=== PATIENT | male | born 1950 | race Caucasian/White ===

== ENCOUNTER 2019-06-12 06:20 | Inpatient (IN) ==
[2019-06-12] MEDS ORDERED: CeFAZolin Syr 2,000MG/20 ML 2,000 MG/20 ML SYRINGE IVPB ONE (06:41)
[2019-06-12] MEDS ORDERED: Acetaminophen IV 1,000 MG/100 ML INFUS..BTL IVPB ONE (06:41)
[2019-06-12] MEDS ORDERED: Ringers Solution, Lactated 1,000 ML IVC SCH (06:45)
[2019-06-12] MEDS ORDERED: Lidocaine -MPF 4% 5 ML AMPUL ONE (06:54)
[2019-06-12] MEDS ORDERED: *HR* Succinylcholine 200 MG/10 ML VIAL IVP ONE (06:54)
[2019-06-12] MEDS ORDERED: Lidocaine -MPF 2% 2 ML VIAL ONE (06:54)
[2019-06-12] MEDS ORDERED: *HR* FentaNYL (PF) 100 MCG/2 ML VIAL ONE ×2 (06:54→09:44)
[2019-06-12] MEDS ORDERED: Dexamethasone 4 MG/ML VIAL ONE (06:54)
[2019-06-12] MEDS ORDERED: Ondansetron 4 MG/2 ML VIAL ONE (06:54)
[2019-06-12] MEDS ORDERED: *HR* Rocuronium Bromide 50 MG/5 ML VIAL ONE ×2 (06:54→09:18)
[2019-06-12] MEDS ORDERED: *HR* Propofol 200 MG/20 ML VIAL IVP ONE (06:55)
[2019-06-12] MEDS ORDERED: *HR* Midazolam HCl 2 MG/2 ML VIAL ONE (06:55)
[2019-06-12] MEDS ORDERED: *HR* Phenylephrine 10 MG/ML VIAL ONE (07:04)
[2019-06-12] MEDS ORDERED: Lacri-Lube 3.5 GM TUBE ONE (08:04)
[2019-06-12] MEDS ORDERED: EPHEDrine 50 MG/ML VIAL ONE (08:17)
[2019-06-12] MEDS ORDERED: *HR* HYDROMORPHONE 2 MG/ML VIAL ONE (10:04)
[2019-06-12] MEDS ORDERED: *HR* OxyCODONE Immed Rel 5 MG TABLET PO PRN (11:54)
[2019-06-12] MEDS ORDERED: *HR* HYDROmorphone (PF) 1 MG/ML SYRINGE IVP PRN (11:59)
[2019-06-12] MEDS ORDERED: Ondansetron 4 MG/2 ML VIAL IVP ONE (11:59)
[2019-06-12] MEDS ORDERED: *HR* Meperidine 25 MG/ML SYRINGE IVP PRN (11:59)
[2019-06-12] MEDS ORDERED: *HR* Promethazine 25 MG/ML VIAL IVP PRN (11:59)
[2019-06-12] MEDS ORDERED: Ondansetron 4 MG/2 ML VIAL IVP PRN (12:57)
[2019-06-12] MEDS ORDERED: Naloxone 0.4 MG/ML INJ IVP PRN (12:57)
[2019-06-12] MEDS: 0.9 % Sodium Chloride 1,000 ML IVC SCH (18:34)
[2019-06-12] MEDS: *HR* Heparin 5,000 UNIT/ML VIAL SQ SCH (18:36)
[2019-06-12] MEDS: Gabapentin 300 MG CAPSULE PO SCH (21:58)
[2019-06-13] MEDS: 0.9 % Sodium Chloride 1,000 ML IVC SCH ×3 (02:48→19:57)
[2019-06-13] MEDS: *HR* Heparin 5,000 UNIT/ML VIAL SQ SCH ×2 (05:13→18:12)
[2019-06-13] MEDS: *HR* HYDROcodone/Acet 5/325 mg TABLET PO PRN ×3 (05:34→20:52)
[2019-06-13 05:48] LABS: Hematocrit 41.5 % (37.5-50.1); Hemoglobin 14.1 g/dL (12.9-16.9); Mean Corpuscular Hemoglobin 30.3 pg (28.0-33.3); Mean Corpuscular Volume 89.2 fL (83.0-100.0); Platelet Count 194 K/mcL (140-400); Red Blood Count 4.65 M/mcL (4.19-5.50); Red Cell Distribution Width 12.8 % (11.5-14.5); White Blood Count 16.8 K/mcL (4.3-11.1)
[2019-06-13 06:09] LABS: BUN/Creatinine Ratio 22 (6-26); Blood Urea Nitrogen 19 mg/dL (8-23); Calcium 8.9 mg/dL (8.6-10.3); Carbon Dioxide 22 mEq/L (23-29); Chloride 105 mEq/L (98-107); Glucose 130 mg/dL (70-105); Osmolality,Calculated 290 (280-300); Potassium 4.9 mEq/L (3.5-5.1); Sodium 138 mEq/L (136-145); eGFR For African Americans > 60 (> 60); eGFR For Non-African Americans > 60 (> 60)
[2019-06-13] MEDS: Gabapentin 300 MG CAPSULE PO SCH ×2 (08:29→20:53)
[2019-06-13] MEDS: Lisinopril 20 MG TABLET PO SCH (08:29)
[2019-06-13] MEDS ORDERED: *HR* FentaNYL (PF) 100 MCG/2 ML VIAL IVP ONE ×2 (18:14→19:24)
[2019-06-13] MEDS: *HR* Belladonna Alkaloids/Opium 30 MG RECTAL SUPPOSITORY RC PRN (18:20)
[2019-06-13] MEDS: *HR* LORazepam 2 MG/ML VIAL IVP PRN (20:51)
[2019-06-13] MEDS: Hyoscyamine SL 0.125 MG TAB.SUBL SL PRN (20:53)
[2019-06-13 20:58] LABS: Hematocrit 38.3 % (37.5-50.1); Hemoglobin 13.4 g/dL (12.9-16.9)
[2019-06-14 02:03] LABS: Hematocrit 36.3 % (37.5-50.1); Hemoglobin 12.5 g/dL (12.9-16.9); Mean Corpuscular HGB Conc 34.4 g/dL (31.6-35.5); Mean Corpuscular Hemoglobin 30.6 pg (28.0-33.3); Mean Corpuscular Volume 88.8 fL (83.0-100.0); Mean Platelet Volume 9.6 fL (9.4-12.4); Platelet Count 171 K/mcL (140-400); Red Blood Count 4.09 M/mcL (4.19-5.50); Red Cell Distribution Width 13.1 % (11.5-14.5); White Blood Count 14.8 K/mcL (4.3-11.1)
[2019-06-14 02:23] LABS: BUN/Creatinine Ratio 20 (6-26); Blood Urea Nitrogen 21 mg/dL (8-23); Calcium 8.4 mg/dL (8.6-10.3); Carbon Dioxide 22 mEq/L (23-29); Chloride 109 mEq/L (98-107); Glucose 112 mg/dL (70-105); Osmolality,Calculated 290 (280-300); Sodium 138 mEq/L (136-145); eGFR For African Americans > 60 (> 60); eGFR For Non-African Americans > 60 (> 60)
[2019-06-14] MEDS: 0.9 % Sodium Chloride 1,000 ML IVC SCH ×3 (03:42→21:01)
[2019-06-14] MEDS: Hyoscyamine SL 0.125 MG TAB.SUBL SL PRN ×2 (03:42→17:55)
[2019-06-14] MEDS: *HR* LORazepam 2 MG/ML VIAL IVP PRN ×2 (04:26→21:04)
[2019-06-14] MEDS: Gabapentin 300 MG CAPSULE PO SCH ×2 (08:30→21:03)
[2019-06-14] MEDS: *HR* HYDROcodone/Acet 5/325 mg TABLET PO PRN ×2 (08:30→17:55)
[2019-06-14] MEDS: Lisinopril 20 MG TABLET PO SCH (08:31)
[2019-06-14 14:30] LABS: Hematocrit 33.4 % (37.5-50.1); Hemoglobin 11.3 g/dL (12.9-16.9)
[2019-06-14] MEDS: *HR* Belladonna Alkaloids/Opium 30 MG RECTAL SUPPOSITORY RC PRN (20:01)
[2019-06-15 04:52] LABS: Hematocrit 31.3 % (37.5-50.1); Hemoglobin 10.4 g/dL (12.9-16.9); Mean Corpuscular HGB Conc 33.2 g/dL (31.6-35.5); Mean Corpuscular Hemoglobin 30.3 pg (28.0-33.3); Mean Corpuscular Volume 91.3 fL (83.0-100.0); Mean Platelet Volume 9.8 fL (9.4-12.4); Platelet Count 121 K/mcL (140-400); Red Blood Count 3.43 M/mcL (4.19-5.50); White Blood Count 7.6 K/mcL (4.3-11.1)
[2019-06-15] MEDS: 0.9 % Sodium Chloride 1,000 ML IVC SCH ×3 (04:53→20:02)
[2019-06-15 04:56] LABS: BUN/Creatinine Ratio 14 (6-26); Blood Urea Nitrogen 12 mg/dL (8-23); Calcium 8.2 mg/dL (8.6-10.3); Carbon Dioxide 24 mEq/L (23-29); Chloride 114 mEq/L (98-107); Glucose 90 mg/dL (70-105); Osmolality,Calculated 293 (280-300); Potassium 4.3 mEq/L (3.5-5.1); Sodium 142 mEq/L (136-145); eGFR For African Americans > 60 (> 60); eGFR For Non-African Americans > 60 (> 60)
[2019-06-15] MEDS: *HR* Belladonna Alkaloids/Opium 30 MG RECTAL SUPPOSITORY RC PRN ×2 (05:30→22:52)
[2019-06-15] MEDS: Acetaminophen 325 MG TABLET PO PRN ×2 (08:46→14:58)
[2019-06-15] MEDS: Gabapentin 300 MG CAPSULE PO SCH ×2 (08:47→20:03)
[2019-06-15] MEDS: Hyoscyamine SL 0.125 MG TAB.SUBL SL PRN ×2 (08:47→14:58)
[2019-06-15] MEDS: Lisinopril 20 MG TABLET PO SCH (08:47)
[2019-06-15 11:18] LABS: Hemoglobin 11.6 g/dL (12.9-16.9)
[2019-06-16] MEDS: *HR* Belladonna Alkaloids/Opium 30 MG RECTAL SUPPOSITORY RC PRN (06:30)
[2019-06-16] MEDS: Gabapentin 300 MG CAPSULE PO SCH ×2 (07:51→20:17)
[2019-06-16] MEDS: Lisinopril 20 MG TABLET PO SCH (07:51)
[2019-06-16] MEDS: 0.9 % Sodium Chloride 1,000 ML IVC SCH ×2 (12:47→20:15)
[2019-06-16] MEDS ORDERED: *HR* LORazepam 1 MG TABLET PO PRN (14:29)
[2019-06-16] MEDS ORDERED: Bisacodyl 10 MG RECTAL SUPPOSITORY RC PRN (15:18)
[2019-06-16] MEDS ORDERED: Bisacodyl 10 MG RECTAL SUPPOSITORY RC ONE (15:19)
[2019-06-17] MEDS ORDERED: 0.9 % Sodium Chloride 1,000 ML ONE ×2 (09:58→23:03)
[2019-06-17 18:55] LABS: BUN/Creatinine Ratio 13 (6-26); Blood Urea Nitrogen 12 mg/dL (8-23); Calcium 8.6 mg/dL (8.6-10.3); Carbon Dioxide 24 mEq/L (23-29); Chloride 102 mEq/L (98-107); Glucose 117 mg/dL (70-105); Osmolality,Calculated 279 (280-300); Potassium 4.1 mEq/L (3.5-5.1); Sodium 134 mEq/L (136-145); eGFR For African Americans > 60 (> 60); eGFR For Non-African Americans > 60 (> 60)
[2019-06-17 19:02] LABS: Basophils % 0.3 %; Eosinophils % 0.3 %; Hematocrit 32.7 % (37.5-50.1); Hemoglobin 11.6 g/dL (12.9-16.9); Immature Granulocytes % 0.3 % (0-4); Lymphocytes # 1.6 K/mcL (0.6-4.6); Lymphocytes % 13.6 %; Mean Corpuscular HGB Conc 35.5 g/dL (31.6-35.5); Mean Corpuscular Hemoglobin 30.4 pg (28.0-33.3); Mean Corpuscular Volume 85.6 fL (83.0-100.0); Mean Platelet Volume 9.9 fL (9.4-12.4); Monocytes # 0.9 K/mcL (0.0-1.3); Monocytes % 7.8 %; Neutrophils # 9.2 K/mcL (1.6-8.9); Platelet Count 149 K/mcL (140-400); Red Blood Count 3.82 M/mcL (4.19-5.50); Red Cell Distribution Width 12.9 % (11.5-14.5); Segmented Neutrophils % 77.7 %; White Blood Count 11.8 K/mcL (4.3-11.1)
[2019-06-17] MEDS: cefTRIAXone 1,000 MG in Water for inj. (sterile) 10 ML IVP SCH (19:39)
[2019-06-17] MEDS: Gabapentin 300 MG CAPSULE PO SCH ×2 (19:39→20:14)
[2019-06-17] MEDS: Lisinopril 20 MG TABLET PO SCH (19:40)
[2019-06-17] MEDS: 0.9 % Sodium Chloride 1,000 ML IV SCH (23:37)
[2019-06-18] MEDS: *HR* OxyCODONE/APAP 10/325 TABLET PO PRN ×2 (00:38→18:00)
[2019-06-18] MEDS: Lisinopril 20 MG TABLET PO SCH (07:23)
[2019-06-18] MEDS: Gabapentin 300 MG CAPSULE PO SCH ×2 (07:23→20:23)
[2019-06-18] MEDS: cefTRIAXone 1,000 MG in Water for inj. (sterile) 10 ML IVP SCH (07:24)
[2019-06-18] MEDS ORDERED: 0.9 % Sodium Chloride 1,000 ML ONE (12:58)
[2019-06-18] MEDS: 0.9 % Sodium Chloride 1,000 ML IV SCH (14:34)
[2019-06-18] MEDS: Hyoscyamine SL 0.125 MG TAB.SUBL SL PRN (16:43)
[2019-06-18] MEDS: *HR* Belladonna Alkaloids/Opium 30 MG RECTAL SUPPOSITORY RC PRN (19:11)
[2019-06-18] MEDS: Acetaminophen 325 MG TABLET PO PRN (20:22)
[2019-06-18] MEDS ORDERED: Acetaminophen IV 1,000 MG/100 ML INFUS..BTL IVPB PRN (21:05)
[2019-06-18 21:21] LABS: Basophils % 0.3 %; Eosinophils % 0.1 %; Hematocrit 30.8 % (37.5-50.1); Hemoglobin 10.8 g/dL (12.9-16.9); Immature Granulocytes % 0.7 % (0-4); Lymphocytes # 0.7 K/mcL (0.6-4.6); Lymphocytes % 10.4 %; Mean Corpuscular HGB Conc 35.1 g/dL (31.6-35.5); Mean Corpuscular Hemoglobin 30.3 pg (28.0-33.3); Mean Corpuscular Volume 86.5 fL (83.0-100.0); Mean Platelet Volume 9.6 fL (9.4-12.4); Monocytes # 0.5 K/mcL (0.0-1.3); Neutrophils # 5.4 K/mcL (1.6-8.9); Platelet Count 151 K/mcL (140-400); Red Blood Count 3.56 M/mcL (4.19-5.50); Red Cell Distribution Width 12.9 % (11.5-14.5); Segmented Neutrophils % 80.5 %; White Blood Count 6.7 K/mcL (4.3-11.1)
[2019-06-18 21:38] LABS: Alanine Aminotransferase 36 Units/L (7-52); Albumin 3.2 g/dL (3.5-5.7); Albumin/Globulin Ratio 1.4 (1.1-2.2); Alkaline Phosphatase 49 Units/L (34-104); Aspartate Amino Transferase 25 Units/L (13-39); BUN/Creatinine Ratio 19 (6-26); Bilirubin,Total 0.7 mg/dL (0.3-1.0); Blood Urea Nitrogen 18 mg/dL (8-23); Calcium 8.2 mg/dL (8.6-10.3); Carbon Dioxide 22 mEq/L (23-29); Chloride 105 mEq/L (98-107); Globulin 2.3 g/dL (2.4-3.5); Glucose 120 mg/dL (70-105); Osmolality,Calculated 281 (280-300); Potassium 3.6 mEq/L (3.5-5.1); Sodium 134 mEq/L (136-145); Total Protein 5.5 g/dL (6.4-8.9); eGFR For African Americans > 60 (> 60); eGFR For Non-African Americans > 60 (> 60)
[2019-06-19 01:23] LABS: Hematocrit 28.5 % (37.5-50.1); Mean Corpuscular HGB Conc 35.1 g/dL (31.6-35.5); Mean Corpuscular Hemoglobin 30.2 pg (28.0-33.3); Mean Corpuscular Volume 86.1 fL (83.0-100.0); Platelet Count 146 K/mcL (140-400); Red Blood Count 3.31 M/mcL (4.19-5.50); Red Cell Distribution Width 12.9 % (11.5-14.5); White Blood Count 5.5 K/mcL (4.3-11.1)
[2019-06-19 01:38] LABS: BUN/Creatinine Ratio 19 (6-26); Blood Urea Nitrogen 17 mg/dL (8-23); Calcium 8.2 mg/dL (8.6-10.3); Carbon Dioxide 21 mEq/L (23-29); Chloride 107 mEq/L (98-107); Glucose 122 mg/dL (70-105); Osmolality,Calculated 281 (280-300); Potassium 3.5 mEq/L (3.5-5.1); Sodium 134 mEq/L (136-145); eGFR For African Americans > 60 (> 60); eGFR For Non-African Americans > 60 (> 60)
[2019-06-19] MEDS ORDERED: 0.9 % Sodium Chloride 1,000 ML ONE (02:10)
[2019-06-19] MEDS: tiZANidine 4 MG TABLET PO PRN ×2 (02:12→20:51)
[2019-06-19] MEDS: 0.9 % Sodium Chloride 1,000 ML IV SCH ×3 (02:13→16:17)
[2019-06-19] MEDS: Ibuprofen 400 MG TABLET PO PRN ×2 (06:18→20:50)
[2019-06-19] MEDS ORDERED: Piperacillin/Tazobactam 3.375 GM in 0.9 % Sodium Chloride Mini Bag 100 ML IVPB SCH (08:00)
[2019-06-19 08:53] LABS: Hemoglobin 9.9 g/dL (12.9-16.9)
[2019-06-19] MEDS: Gabapentin 300 MG CAPSULE PO SCH ×2 (09:30→20:51)
[2019-06-19] MEDS: Lisinopril 20 MG TABLET PO SCH (09:31)
[2019-06-19 15:16] LABS: Hematocrit 30.5 % (37.5-50.1); Hemoglobin 10.3 g/dL (12.9-16.9)
[2019-06-19] MEDS: Acetaminophen 325 MG TABLET PO PRN (16:16)
[2019-06-19 19:09] LABS: Hematocrit 29.2 % (37.5-50.1)
[2019-06-19] MEDS: Hyoscyamine SL 0.125 MG TAB.SUBL SL PRN (20:50)
[2019-06-20 02:16] LABS: Hematocrit 27.6 % (37.5-50.1); Hemoglobin 9.5 g/dL (12.9-16.9); Mean Corpuscular HGB Conc 34.4 g/dL (31.6-35.5); Mean Corpuscular Hemoglobin 30.4 pg (28.0-33.3); Mean Corpuscular Volume 88.2 fL (83.0-100.0); Mean Platelet Volume 9.8 fL (9.4-12.4); Platelet Count 157 K/mcL (140-400); Red Blood Count 3.13 M/mcL (4.19-5.50); White Blood Count 4.1 K/mcL (4.3-11.1)
[2019-06-20 02:37] LABS: BUN/Creatinine Ratio 22 (6-26); Blood Urea Nitrogen 16 mg/dL (8-23); Calcium 8.7 mg/dL (8.6-10.3); Carbon Dioxide 19 mEq/L (23-29); Chloride 110 mEq/L (98-107); Glucose 127 mg/dL (70-105); Osmolality,Calculated 289 (280-300); Potassium 3.1 mEq/L (3.5-5.1); Sodium 138 mEq/L (136-145); eGFR For African Americans > 60 (> 60); eGFR For Non-African Americans > 60 (> 60)
[2019-06-20] MEDS: 0.9 % Sodium Chloride 1,000 ML IV SCH (06:34)
[2019-06-20] MEDS: Gabapentin 300 MG CAPSULE PO SCH ×2 (09:01→21:24)
[2019-06-20] MEDS: Lisinopril 20 MG TABLET PO SCH (09:01)
[2019-06-21] MEDS: 0.9 % Sodium Chloride 1,000 ML IV SCH (00:18)
[2019-06-21 05:03] LABS: BUN/Creatinine Ratio 18 (6-26); Blood Urea Nitrogen 14 mg/dL (8-23); Calcium 8.4 mg/dL (8.6-10.3); Carbon Dioxide 20 mEq/L (23-29); Chloride 109 mEq/L (98-107); Glucose 101 mg/dL (70-105); Osmolality,Calculated 287 (280-300); Potassium 3.2 mEq/L (3.5-5.1); Sodium 138 mEq/L (136-145); eGFR For African Americans > 60 (> 60); eGFR For Non-African Americans > 60 (> 60)
[2019-06-21] MEDS: Gabapentin 300 MG CAPSULE PO SCH (08:50)
[2019-06-21] MEDS: Lisinopril 20 MG TABLET PO SCH (08:50)
[2019-06-21 11:34] VITALS: BP 112/67
[2019-06-21] MEDS ORDERED: FLU Vac QV 19-20 (6Month+)/PF 0.5 ML SYRINGE IM ONE (13:29)
== END 2019-06-21 17:22 | disposition home or self-care (01) | DRG 717 ==
LOC: SAMDAY 06:20 → 3ANU 12:57 → SUATTDRO 12:57 → 2NNU 06-13 20:37
PROVIDERS: ADMIT Urology; ATTEND Internal Medicine